=== PATIENT | male | born 1945 | race Caucasian/White ===

== ENCOUNTER → 2017-04-08 | Outpatient (CLI) | payer MEDICARE, OTHER | END | disposition short-term general hospital (02) | LOC: CLNEPH 09:07 | DX: I13.0 Hypertensive heart and chronic kidney disease with heart failure and stage 1 through stage 4 chronic kidney disease, or unspecified chronic kidney disease (principal); I50.22 Chronic systolic (congestive) heart failure; N18.4 Chronic kidney disease, stage 4 (severe); D50.8 Other iron deficiency anemias; G47.31 Primary central sleep apnea ==